=== PATIENT | male | born 1990 | race Caucasian/White ===

== ENCOUNTER 2017-01-12 15:25 | Emergency (ER) | payer SELFPAY ==
[~2017-01-12] VITALS: Ht 182.9 cm; Wt 99.8 kg
[2017-01-12 15:32] VITALS: BP 151/81; PULSE 86; RESP 16; TEMP 97.8; O2SAT 97
[2017-01-12] MEDS ORDERED: ALBU0.63 (15:37)
--- NOTE | 2017-01-12 16:34 | NUR ---
Josephine RODGERS examining patient
[2017-01-12] MEDS ORDERED: ACETAMINOPHEN/CODEINE 300 MG-30 MG TABLET PO ONE (16:45)
--- NOTE | 2017-01-12 16:59 | NUR ---
Patient placed in hallway
--- NOTE | 2017-01-12 17:11 | NUR ---
Received report, patient in stable condition, alert and oriented x4. John states dropped weight on right foot today, states has pain to top of right foot, no deformities noted, skin intact, able to wiggle all fingers freely, no numbness or tingling per patient, capillary refill less than three seconds, sensation present. States hurts to walk. No other complaints/ injuries per patient or noted. Addendum: 01/12/17 at 1716 by LETICIA Pedal pulses present and strong Addendum: 01/12/17 at 1807 by LETICIA slight brusing noted to right toes.
[2017-01-12 18:06] VITALS: BP 140/80; PULSE 80; RESP 16; TEMP 97.6; O2SAT 98
--- NOTE | 2017-01-12 18:06 | NUR ---
Patient given written and verbal discharge instructions and verbalizes understanding. ER MD discussed with patient the results and treatment provided.Patient in stable condition. ID arm band removed. Rx of Motrin given. Patient educated on pain management and to follow up with PMD in 2 days. Pain Scale 0/10. Opportunity for questions provided and answered.
== END 2017-01-12 18:06 | disposition home or self-care (01) ==
LOC: SED 15:25
DX: S90.121A Contusion of right lesser toe(s) without damage to nail, initial encounter (principal); J45.909 Unspecified asthma, uncomplicated; W20.8XXA Other cause of strike by thrown, projected or falling object, initial encounter; Y93.89 Activity, other specified; Y99.8 Other external cause status; Y92.39 Other specified sports and athletic area as the place of occurrence of the external cause
CPT/HCPCS: 99284